=== PATIENT | male | born 1990 | race African-American/Black ===

== ENCOUNTER 2024-08-22 16:53 | Emergency (ER) | payer MEDICARE ==
[~2024-08-22] VITALS: Ht 195.6 cm; Wt 98.0 kg
[2024-08-22 16:57] VITALS: O2SAT 99
[2024-08-22 17:39] LABS: CLARITY URINE CLEAR (CLEAR); COLOR URINE YELLOW (YELLOW); GLUCOSE URINE NEGATIVE (NEGATIVE); KETONES URINE NEGATIVE (NEGATIVE); LEUKOCYTE ESTERASE URINE NEGATIVE (NEGATIVE); NITRITE URINE NEGATIVE (NEGATIVE); OCCULT BLOOD URINE NEGATIVE (NEGATIVE); PROTEIN URINE NEGATIVE (NEGATIVE)
[2024-08-22 17:47] LABS: *AMPHETAMINES SCREEN URINE NEGATIVE (NEGATIVE); *BARBITURATES SCREEN URINE NEGATIVE (NEGATIVE); *BENZODIAZEPINES SCREEN URINE NEGATIVE (NEGATIVE); *COCAINE SCREEN URINE NEGATIVE (NEGATIVE); CANNABINOID URINE SCREEN PRESUMPTIVE POSITIVE (NEGATIVE); ECSTASY MDMA SCREEN URINE NEGATIVE (NEGATIVE); METHADONE URINE SCREEN NEGATIVE (NEGATIVE); OPIATES URINE SCREEN NEGATIVE (NEGATIVE); PHENCYCLIDINE URINE SCREEN NEGATIVE (NEGATIVE)
[2024-08-22 18:19] LABS: BASOPHILS % 0.5 % (0.0-2.0); EOSINOPHILS % 1.2 % (0.0-5.0); HEMATOCRIT. 38.2 % (42.0-52.0); HEMOGLOBIN. 13.1 g/dL (14.0-18.0); LYMPHOCYTES % 25.8 % (20.0-50.0); MEAN CORPUSCULAR HEMOGLOBIN 31.5 pg (28.0-32.0); MEAN CORPUSCULAR HGB CONC 34.4 g/dL (31.0-37.0); MEAN CORPUSCULAR VOLUME 91.7 fL (80.0-94.0); MEAN PLATELET VOLUME 9.7 fl (7.4-10.4); MONOCYTES % 5.5 % (2.0-8.0); PLATELET 95 x1000/uL (130-400); RED BLOOD CELL COUNT 4.16 mill/uL (4.7-6.1); RED CELL DISTRIBUTION WIDTH 13.2 % (11.6-14.6); WHITE BLOOD COUNT 5.2 x1000/uL (4.5-11.0)
[2024-08-22 18:20] LABS: CHLORIDE 105 mEq/L (98-107); POTASSIUM 3.5 mEq/L (3.5-5.1); SODIUM 141 mEq/L (136-145)
[2024-08-22 18:21] LABS: CALCIUM 9.5 mg/dL (8.7-10.4); CARBON DIOXIDE 29 mEq/L (21-32)
[2024-08-22 18:26] LABS: GLUCOSE 117 mg/dL (70-105); UREA NITROGEN BLOOD 9 mg/dL (9-23)
[2024-08-22 18:28] LABS: ACETAMINOPHEN < 2 ug/mL (10-30)
[2024-08-22 18:37] LABS: ETHANOL BLOOD < 10 mg/dL (<10)
[2024-08-23 20:09] VITALS: BP 131/86; PULSE 57; RESP 16; TEMP 36.72516; O2SAT 100
== END 2024-08-23 20:08 ==
LOC: ER 16:53
DX: R45.851 Suicidal ideations (principal); F32.9 Major depressive disorder, single episode, unspecified; F12.10 Cannabis abuse, uncomplicated; Z20.822 Contact with and (suspected) exposure to COVID-19
CPT/HCPCS: 36415; 80048; 80305; 80307; 80320; 80329; 81003; 85025; 87426; 99285; G0480

== ENCOUNTER 2025-10-01 10:02 | Emergency (ER) | payer MEDICAID, MEDICARE ==
[~2025-10-01] VITALS: Ht 188 cm; Wt 85.0 kg
[2025-10-01 10:10] VITALS: O2SAT 98
[2025-10-01] MEDS: ACETAMINOPHEN 325MG TABLET PO ONE (10:57)
[2025-10-01] MEDS ORDERED: PETR5OIN3 TP (12:06)
[2025-10-01] MEDS ORDERED: IBUP-2437 MT (12:06)
[2025-10-01 12:10] VITALS: BP 131/85; PULSE 68; RESP 18; TEMP 36.7; O2SAT 98
== END 2025-10-01 12:30 | disposition home or self-care (01) ==
LOC: ER 10:02
DX: L84 Corns and callosities (principal); F12.90 Cannabis use, unspecified, uncomplicated; Z79.899 Other long term (current) drug therapy
CPT/HCPCS: 73120; 99283